=== PATIENT | female | born 1985 | race Two or more races ===

== ENCOUNTER 2024-04-16 11:03 | Emergency (ER) | payer OTHER ==
[~2024-04-16] VITALS: Ht 157.5 cm; Wt 93.0 kg
[2024-04-16] MEDS ORDERED: FF) NORGESTREL-ETHINYL ESTRADIOL TAB PO STA (12:56)
[2024-04-16] MEDS ORDERED: DOXYCYCLINE HYCLATE 100 MG TABLET PO STA (12:57)
[2024-04-16] MEDS ORDERED: CEFTRIAXONE SODIUM 1,000 MG VIAL IV ONE (13:00)
[2024-04-16] MEDS ORDERED: ELVITEG/COB/EMTRI/TENOFO DISOP 1 UDTAB TABLET PO ONE (13:00)
[2024-04-16] MEDS ORDERED: METROnidazole 500 MG TABLET PO ONE (13:00)
[2024-04-16 13:09] LABS: HEMATOCRIT 41.2 % (36.0-45.00); HEMOGLOBIN 13.8 g/dL (12.0-15.00); MEAN CELL VOLUME 93.5 fL (80.00-100.00); MEAN CORPUSCULAR HEMOGLOBIN 31.4 pg (27.00-32.0); MEAN CORPUSCULAR HGB CONC 33.6 g/dl (32.0-36.0); PLATELET COUNT 319 K/uL (150-450); RED CELL DISTRIBUTION WIDTH 13.1 % (11.5-14.5)
[2024-04-16 13:36] LABS: CREATININE SERUM 0.56 mg/dL (0.55-1.02); GFR 120.52; POTASSIUM 3.79 mEq/L (3.5-5.1)
[2024-04-16 15:20] LABS: PH,URINE 5.5 (5.0-8.0); URINE APPEARANCE Clear; URINE BILIRRUBIN Negative (NEGATIVE); URINE BLOOD Negative; URINE COLOR Yellow; URINE GLUCOSE Negative (NEGATIVE); URINE KETONE Negative (NEGATIVE); URINE LEUKOCYTE Trace; URINE NITRATE Negative; URINE PROTEIN Negative (NEGATIVE); URINE UROBILINOGEN 0.2 E.U./dl
[2024-04-16 15:24] LABS: URINE BACTERIA 142.3 uL (0.0-1933); URINE EPITHELIAL CELLS 20.2 uL (0.0-38.8); URINE RBC 9.6 uL (0.0-20.8); URINE WBC 16.8 uL (0.0-23.2)
== END 2024-04-16 16:31 | disposition home or self-care (01) ==
LOC: ER 11:05
PROVIDERS: Emergency Medicine
DX: T76.21XA Adult sexual abuse, suspected, initial encounter (principal)

== ENCOUNTER 2024-05-16 13:34 | Emergency (ER) | payer OTHER ==
[~2024-05-16] VITALS: Ht 157.5 cm; Wt 90.7 kg
[2024-05-16 13:45] VITALS: BP 103/57; O2SAT 97
[2024-05-16] MEDS ORDERED: ONDANSETRON HCL 2 MG/ML VIAL IV ONE (16:30)
[2024-05-16] MEDS ORDERED: 0.9 % SODIUM CHLORIDE 1,000 ML IV ONE (16:30)
[2024-05-16] MEDS ORDERED: FAMOtidine 10 MG/ML (4ML VIAL) IV ONE (16:30)
[2024-05-16] MEDS ORDERED: KETOROLAC TROMETHAMINE 60 MG VIAL IM ONE ×2 (16:30→16:36)
[2024-05-16] MEDS ORDERED: ONDANSETRON HCL 2 MG/ML VIAL ONE (16:36)
[2024-05-16] MEDS ORDERED: FAMOTIDINE/PF 20 MG/2 ML VIAL ONE (16:36)
[2024-05-16 17:09] LABS: HEMATOCRIT 42.2 % (36.0-45.00); HEMOGLOBIN 14.6 g/dL (12.0-15.00); MEAN CELL VOLUME 91.9 fL (80.00-100.00); MEAN CORPUSCULAR HEMOGLOBIN 31.7 pg (27.00-32.0); MEAN CORPUSCULAR HGB CONC 34.5 g/dl (32.0-36.0); PLATELET COUNT 325 K/uL (150-450); RED BLOOD COUNT 4.59 M/uL (4.00-6.00); RED CELL DISTRIBUTION WIDTH 12.9 % (11.5-14.5)
[2024-05-16 17:44] LABS: INR 1.08; PROTHROMBIN TIME 11.7 SECONDS (9.0-11.5)
[2024-05-16 17:52] LABS: ALBUMIN 3.7 gm/dL (3.4-5.0); ALKALINE PHOSPHATASE 82 U/L (50-136); ALT/SGPT 18 U/L (12-78); ANION GAP 7 (10.0-20.0); AST/SGOT 12 U/L (15-37); BILIRUBIN TOTAL 0.26 mg/dL (0.3-1.2); BLOOD UREA NITROGEN 20 mg/dL (7-18); BUN CREA RATIO 33 (7.0-25.0); CALCIUM 9.4 mg/dL (8.5-10.1); CARBON DIOXIDE 28 mEq/L (21-32); CHLORIDE 107 mmol/L (98-107); GFR 111.29; GLOBULINA 3.8 G/DL (2.4-3.5); GLUCOSE FASTING 94 mg/dL (65-100); OSMOLALITY SERUM 278 MOSM/KG (275-295); POTASSIUM 4.34 mEq/L (3.5-5.1); SODIUM 138 mmol/L (136-145); TOTAL PROTEIN 7.5 gm/dL (6.4-8.2)
[2024-05-16 18:09] LABS: HCG QUANTITATIVE < 1 mUI/mL (1-3)
[2024-05-16 19:34] LABS: PH,URINE 5.5 (5.0-8.0); URINE APPEARANCE Cloudy; URINE BILIRRUBIN Negative (NEGATIVE); URINE BLOOD Negative; URINE COLOR Yellow; URINE GLUCOSE Negative (NEGATIVE); URINE KETONE Negative (NEGATIVE); URINE LEUKOCYTE Small; URINE NITRATE Negative; URINE PROTEIN Negative (NEGATIVE); URINE UROBILINOGEN 0.2 E.U./dl
[2024-05-16 19:39] LABS: URINE BACTERIA 905.7 uL (0.0-1933); URINE EPITHELIAL CELLS 180.6 uL (0.0-38.8); URINE RBC 15.7 uL (0.0-20.8); URINE WBC 54.4 uL (0.0-23.2)
== END 2024-05-17 08:00 | disposition home or self-care (01) ==
LOC: ER 13:36
PROVIDERS: General Practice
DX: K62.5 Hemorrhage of anus and rectum (principal)
CPT/HCPCS: 36415; 74177; Q9965

== ENCOUNTER 2024-07-12 13:30 | Emergency (ER) | payer OTHER ==
[~2024-07-12] VITALS: Ht 157.5 cm; Wt 99.8 kg
[2024-07-12] MEDS ORDERED: ORPHENADRINE CITRATE 30 MG/ML AMPUL IM STA (14:45)
[2024-07-12] MEDS ORDERED: KETOROLAC TROMETHAMINE 60 MG VIAL IM STA (14:46)
[2024-07-12] MEDS ORDERED: ORPHENADRINE CITRATE 30 MG/ML AMPUL ONE (15:03)
[2024-07-12] MEDS ORDERED: KETOROLAC TROMETHAMINE 60 MG VIAL IM ONE (15:03)
== END 2024-07-12 15:34 | disposition home or self-care (01) ==
LOC: ER 13:33
DX: M62.830 Muscle spasm of back (principal); M62.838 Other muscle spasm; F32.89 Other specified depressive episodes
CPT/HCPCS: 96372; 99282; J1885; J2360